=== PATIENT | female | born 1930 | race Caucasian/White ===

== ENCOUNTER 2019-08-09 09:09 | Observation (INO) | payer MEDICARE, OTHER ==
--- NOTE | 2019-08-09 09:31 | EDM.PDOC ---
ED HPI GENERAL MEDICAL PROBLEM - General Chief Complaint: General Stated Complaint: generalized weakness Time Seen by Provider: 08/09/19 09:22 Source of Information: Reports: Patient, EMS History Limitations: Reports: No Limitations - History of Present Illness INITIAL COMMENTS - FREE TEXT/NARRATIVE: Pt. presents to ER with complaints of weakness, lightheadedness, and complaints of nearly passing out. Pt. lives at home with her and is his 100% caregiver. Pt. states that she developed severe lightheadedness and felt as though she was going to pass out when she stood up this AM. EMS was summoned. She denies any chest pain or shortness of breath. No palpitations. Denies any fever or chills, but she states that she has been experiencing myalgias in her arms and legs over the past week as well. She states that she has been taking large doses of ibuprofen for the discomfort. Pt. states that she had 2 dark, tarry stools in the past 2 days. Previously she was constipated and has been taking miralax. She also complains of abdominal pain. It is diffuse in nature but localizes to the R side. She denies any rashes. No recent ill contacts. No sore throat, rhinorrhea, or congestion. No nausea/vomiting. Pt. was hypotensive on scene (89/40) and was given a small fluid bolus. BP improved to 128/78 with fluid and recumbent positioning. Onset: Today Location: Reports: Abdomen, Generalized Quality: Reports: Ache Severity: Moderate Associated Symptoms: Reports: Malaise, Weakness. Denies: Diaphoresis, Fever/ Chills, Headaches, Nausea/Vomiting, Rash, Shortness of Breath Treatments ENVIRONMENTAL SAFETY SPECIALIST: Reports: IV/IO abd/generalized Pain Score (Numeric/FACES): 5 - Related Data Allergies Allergy/AdvReac Type Severity Reaction Status Date / Time acetaminophen Allergy Rash Verified 08/09/19 09:44 [From Tylenol-Codeine] atorvastatin calcium Allergy Other Verified 08/09/19 09:44 [From Lipitor] codeine Allergy Cannot Verified 08/09/19 09:44 Remember codeine phosphate Allergy Rash Verified 08/09/19 09:44 [From Tylenol-Codeine] ezetimibe [From Zetia] Allergy Nausea and Verified 08/09/19 09:44 Vomiting fluvastatin sodium Allergy Other Verified 08/09/19 09:44 [From Lescol] simvastatin [From Zocor] Allergy Other Verified 08/09/19 09:44 strawberry Allergy Rash Verified 08/09/19 09:44 Sulfa (Sulfonamide Allergy Hives Verified 08/09/19 09:44 Antibiotics) tetanus toxoid, adsorbed Allergy Other Verified 08/09/19 09:44 PED DANDER Allergy Bronchospas Uncoded 08/09/19 09:44 ms Home Meds: Home Meds Aspirin [Halfprin] 81 mg PO DAILY 07/04/15 [History] Benazepril [Lotensin] 1 tab PO DAILY 07/04/15 [History] Levothyroxine [Synthroid] 100 mcg PO DAILY 07/04/15 [History] Metoprolol Succinate [Toprol XL] 50 mg PO DAILY 07/04/15 [History] Cholecalciferol (Vitamin D3) [Vitamin D3] 2,000 unit PO DAILY 08/09/19 [History] Ibuprofen 200 mg PO Q4H PRN 08/09/19 [History] Psyllium Husk [Metamucil] 1 tsp PO DAILY PRN 08/09/19 [History] Past Medical History Other Gastrointestinal History: RECTAL BLEEDING, HX COLON POLYPS Other Endocrine/Metabolic History: HYPERPARATHYROIDISM Other Hematologic History: HYPERCALCEMIA - Past Surgical History Other GI Surgeries/Procedures: HEMORRHOIDECTOMY Other Musculoskeletal Surgeries/Procedures:: TENDON REPAIR ED ROS GENERAL - Review of Systems Review Of Systems: See Below Constitutional: Reports: Malaise, Weakness, Fatigue. Denies: Night Sweats, Diaphoresis HEENT: Reports: No Symptoms Respiratory: Reports: No Symptoms Cardiovascular: Reports: No Symptoms Endocrine: Reports: No Symptoms GI/Abdominal: Reports: Abdominal Pain, Black Stool, Melena. Denies: Nausea, Vomiting : Reports: No Symptoms Musculoskeletal: Reports: Muscle Pain Skin: Reports: No Symptoms Neurological: Reports: Weakness Psychiatric: Reports: No Symptoms Hematologic/Lymphatic: Reports: No Symptoms Immunologic: Reports: No Symptoms ED EXAM, GENERAL - Physical Exam Exam: See Below Exam Limited By: No Limitations General Appearance: Alert, WD/WN, Mild Distress Eye Exam: Bilateral Eye: EOMI, Normal Fundi, Normal Inspection, PERRL Throat/Mouth: Normal Inspection, Normal Lips, Normal Teeth, Normal Gums, Normal Oropharynx, Normal Voice, No Airway Compromise Head: Atraumatic, Normocephalic Neck: Normal Inspection, Supple, Non-Tender, Full Range of Motion Respiratory/Chest: No Respiratory Distress, Lungs Clear, Normal Breath Sounds, No Accessory Muscle Use, Chest Non-Tender Cardiovascular: Normal Peripheral Pulses, Regular Rate, Rhythm, No Edema, No Gallop, No JVD, No Murmur, No Rub Peripheral Pulses: 4+: Radial (R) GI/Abdominal: Soft, No Organomegaly, No Distention, No Mass, Pelvis Stable, Tender (Female) Exam: Deferred Rectal (Female) Exam: Normal Rectal Tone Back Exam: Normal Inspection, Full Range of Motion Extremities: Normal Inspection, Normal Range of Motion, Non-Tender, No Pedal Edema, Normal Capillary Refill Neurological: Alert, Oriented, CN II-XII Intact, Normal Cognition, Normal Gait, Normal Reflexes, No Motor/Sensory Deficits Psychiatric: Normal Affect, Normal Mood Skin Exam: Warm, Dry, Intact, No Rash, Pallor Lymphatic: No Adenopathy EKG INTERPRETATION Rhythm: NSR Vale: Normal P-Wave: Present QRS: Normal ST-T: Normal QT: Normal Course - Vital Signs Last Recorded V/S: Last Vital Signs Temp 37.0 C 08/09/19 09:22 Pulse 71 08/09/19 09:22 Resp 16 08/09/19 09:22 BP 153/60 H 08/09/19 09:22 Pulse Ox 96 08/09/19 09:22 - Orders/Labs/Meds Orders: Active Orders 24 hr Category Date Time Status EKG Documentation Completion [RC] STAT Care 08/09/19 09:24 Active CULTURE BLOOD [BC] Stat Lab 08/09/19 09:48 Received CULTURE BLOOD [BC] Stat Lab 08/09/19 09:53 Received FECAL OCCULT BLOOD,POC DIAG [POC] Stat Lab 08/09/19 09:38 Ordered UA W/MICROSCOPIC [URIN] Stat Lab 08/09/19 09:22 Ordered Sodium Chloride 0.9% [Saline Flush] Med 08/09/19 09:21 Active 10 ml FLUSH ASDIRECTED PRN Blood Culture x2 Reflex Set [OM.PC] Stat Oth 08/09/19 09:22 Ordered Peripheral IV Insertion Adult [OM.PC] Routine Oth 08/09/19 09:21 Ordered Medication Orders Sodium Chloride (Saline Flush) 10 ml FLUSH ASDIRECTED PRN PRN Reason: Keep Vein Open Labs: Laboratory Tests 08/09/19 08/09/19 08/09/19 Range/Units 09:53 09:53 09:53 WBC 13.5 H (4.0-10.0) x10^3/uL RBC 3.88 L (4.00-5.50) x10^6/uL Hgb 11.6 L (12.0-16.0) g/dL Hct 35.7 (33.0-47.0) % MCV 92.0 (78.0-93.0) fL MCH 29.9 (26.0-32.0) pg MCHC 32.5 (32.0-36.0) g/dL RDW Coeff of Johan 12.2 (10.0-15.0) % Plt Count 335 (130-400) x10^3/uL Neut % (Auto) 86.7 H (50.0-80.0) % Lymph % (Auto) 6.6 L (25.0-50.0) % [place] % (Auto) 5.5 (2.0-11.0) % Eos % (Auto) 1.0 (0.0-4.0) % Baso % (Auto) 0.2 (0.2-1.2) % PT (10.0-12.8) SEC INR (2.0-3.5) Sodium 144 (69-191) mmol/L Potassium 4.3 (1.5-9.9) mmol/L Chloride 107 (54-184) mmol/L Carbon Dioxide 27 (21-32) mmol/L Anion Gap 14.3 (10-20) mmol/L BUN 11 (7-18) mg/dL Creatinine 1.0 (0.55-1.02) mg/dL Est Cr Clr Drug Dosing 28.78 mL/min Estimated GFR (MDRD) 52 Glucose 137 H (74-106) mg/dL Lactic Acid 1.4 (0.4-2.0) mmol/L Calcium 10.2 H (8.5-10.1) mg/dL Corrected Calcium 11.00 H (8.5-10.1) mg/dL Phosphorus 2.7 (2.6-4.7) mg/dL Magnesium 2.0 (1.8-2.4) mg/dL Total Bilirubin 0.6 (0.2-1.0) mg/dL AST 14 L (15-37) U/L ALT 13 L (14-59) U/L Alkaline Phosphatase 75 (46-116) U/L C-Reactive Protein 5.1 H (<=0.9) mg/dL Total Protein 6.8 (6.4-8.2) g/dL Albumin 3.0 L (3.4-5.0) g/dL Globulin 3.8 Albumin/Globulin Ratio 0.79 TSH, Ultra Sensitive 0.570 (0.358-3.74) uIU/mL 08/09/19 Range/Units 09:53 WBC (4.0-10.0) x10^3/uL RBC (4.00-5.50) x10^6/uL Hgb (12.0-16.0) g/dL Hct (33.0-47.0) % MCV (78.0-93.0) fL MCH (26.0-32.0) pg MCHC (32.0-36.0) g/dL RDW Coeff of Johan (10.0-15.0) % Plt Count (130-400) x10^3/uL Neut % (Auto) (50.0-80.0) % Lymph % (Auto) (25.0-50.0) % [place] % (Auto) (2.0-11.0) % Eos % (Auto) (0.0-4.0) % Baso % (Auto) (0.2-1.2) % PT 9.8 L (10.0-12.8) SEC INR 0.9 L (2.0-3.5) Sodium (69-191) mmol/L Potassium (1.5-9.9) mmol/L Chloride (54-184) mmol/L Carbon Dioxide (21-32) mmol/L Anion Gap (10-20) mmol/L BUN (7-18) mg/dL Creatinine (0.55-1.02) mg/dL Est Cr Clr Drug Dosing mL/min Estimated GFR (MDRD) Glucose (74-106) mg/dL Lactic Acid (0.4-2.0) mmol/L Calcium (8.5-10.1) mg/dL Corrected Calcium (8.5-10.1) mg/dL Phosphorus (2.6-4.7) mg/dL Magnesium (1.8-2.4) mg/dL Total Bilirubin (0.2-1.0) mg/dL AST (15-37) U/L ALT (14-59) U/L Alkaline Phosphatase (46-116) U/L C-Reactive Protein (<=0.9) mg/dL Total Protein (6.4-8.2) g/dL Albumin (3.4-5.0) g/dL Globulin Albumin/Globulin Ratio TSH, Ultra Sensitive (0.358-3.74) uIU/mL Meds: Medications Generic Name Dose Route Start Last Admin Trade Name Freq PRN Reason Stop Dose Admin Sodium Chloride 10 ml 08/09/19 09:21 Saline Flush FLUSH ASDIRECTED PRN Keep Vein Open Discontinued Medications Generic Name Dose Route Start Last Admin Trade Name Freq PRN Reason Stop Dose Admin Iopamidol 100 ml 08/09/19 10:46 08/09/19 11:09 Isovue-300 (61%) IVPUSH 08/09/19 10:47 100 ml ONETIME ONE Administration Pantoprazole Sodium 40 mg 08/09/19 11:00 08/09/19 11:17 Protonix Iv IVPUSH 08/09/19 11:01 40 mg ONETIME ONE Administration - Radiology Interpretation Free Text/Narrative:: chest x-ray is negative for acute pathology CT abd/pelvis negative for acute pathology - Re-Assessments/Exams Free Text/Narrative Re-Assessment/Exam: Fecal occult blood was negative. Pt. smells strongly of melena. Departure - Departure Time of Disposition: 12:03 Disposition: Refer to Observation Clinical Impression: Gastritis due to nonsteroidal anti-inflammatory drug (NSAID) - Discharge Information - Problem List Review Problem List Initiated/Reviewed/Updated: Yes - My Orders Last 24 Hours: My Active Orders 08/09/19 09:21 Sodium Chloride 0.9% [Saline Flush] 10 ml FLUSH ASDIRECTED PRN Peripheral IV Insertion Adult [OM.PC] Routine 08/09/19 09:22 UA W/MICROSCOPIC [URIN] Stat Blood Culture x2 Reflex Set [OM.PC] Stat 08/09/19 09:24 EKG Documentation Completion [RC] STAT 08/09/19 09:38 FECAL OCCULT BLOOD,POC DIAG [POC] Stat 08/09/19 09:48 CULTURE BLOOD [BC] Stat 08/09/19 09:53 CULTURE BLOOD [BC] Stat - Assessment/Plan Admission H&P: Please use this note as an admission H&P Last 24 Hours: My Active Orders 08/09/19 09:21 Sodium Chloride 0.9% [Saline Flush] 10 ml FLUSH ASDIRECTED PRN Peripheral IV Insertion Adult [OM.PC] Routine 08/09/19 09:22 UA W/MICROSCOPIC [URIN] Stat Blood Culture x2 Reflex Set [OM.PC] Stat 08/09/19 09:24 EKG Documentation Completion [RC] STAT 08/09/19 09:38 FECAL OCCULT BLOOD,POC DIAG [POC] Stat 08/09/19 09:48 CULTURE BLOOD [BC] Stat 08/09/19 09:53 CULTURE BLOOD [BC] Stat Plan: Spoke with Dr. Siddiqi. Pt. will be admitted observation at this point. Pt. was started on IV protonix. Pt. FOBT was negative, but her stool smell is consistent with digested blood. Her stool in ER was normal colored and non- melenic. Will continue IV protonix BID. H and H will be trended. Will start maintenance IV fluids. Dr. Siddiqi will assume care in the AM.
--- NOTE | 2019-08-09 10:28 | CR ---
[id number] RAD/RAD Chest PA or AP 1V EXAM: FRONTAL CHEST INDICATION: Weakness and fatigue. COMPARISON: None. DISCUSSION: A 6 mm right perihilar granuloma. Hyperinflation compatible with chronic obstructive pulmonary disease. Borderline heart size without evidence of congestive heart failure. IMPRESSION: 1. No acute findings. Raul Echavarria MD 08/09/19 1027 Thank you for allowing us to participate in the care of your patient.
[2019-08-09 10:38] LABS: ANION GAP 14.3 mmol/L (10-20)
[2019-08-09] MEDS ORDERED: Iopamidol 612 MG/ML 100 ML Bottle IVPUSH ONE (10:46)
[2019-08-09] MEDS ORDERED: Pantoprazole 40 MG Vial IVPUSH ONE (11:00)
--- NOTE | 2019-08-09 11:36 | CT ---
[id number] CT/CT Abdomen Pelvis W IV EXAM: CT Abdomen Pelvis W IV CLINICAL DATA: RT SIDED ABD PAIN, ELEVATED WBC'S COMPARISON STUDY: None. FINDINGS: Gallbladder has been resected. Postcholecystectomy dilation of the common bile duct. Liver, spleen, pancreas, adrenal glands are unremarkable. Renal sinus and cortical cysts in both kidneys. Largest is on the right measuring 5 cm. Colonic diverticulosis. Moderate colonic stool burden. No evidence of acute diverticulitis or colitis. No small bowel obstruction or inflammation. No lymphadenopathy in the abdomen or pelvis. Urinary bladder is unremarkable. Uterus has been resected. Adnexal regions are unremarkable. Scattered changes of spondylosis throughout the spine. No fracture or osseous lesion. IMPRESSION: No acute findings in the abdomen or pelvis. Multiple chronic findings are described in detail above. Sunil Yarbrough MD 08/09/19 [id number] Thank you for allowing us to participate in the care of your patient.
[2019-08-09] MEDS ORDERED: Sodium Chloride 0.9% 1,000 ML IV ONE (12:12)
[2019-08-09] MEDS: Sodium Chloride 0.9% 10 ML Syringe FLUSH PRN ×2 (19:53→21:35)
[2019-08-09] MEDS ORDERED: cefTRIAXone 1 GM Vial IVPUSH SCH (20:00)
[2019-08-09] MEDS ORDERED: Pantoprazole 40 MG Vial IVPUSH SCH (22:30)
[2019-08-10] MEDS ORDERED: Levothyroxine 100 MCG Tab PO SCH (07:00)
[2019-08-10 07:34] LABS: ANION GAP 13.7 mmol/L (10-20)
[2019-08-10] MEDS ORDERED: Cholecalciferol (Vitamin D3) 25 MCG Tab PO SCH (08:00)
[2019-08-10] MEDS ORDERED: Pantoprazole 40 MG Vial IVPUSH SCH (08:00)
[2019-08-10] MEDS ORDERED: Metoprolol Succinate 50 MG Tab.ER PO SCH (08:00)
[2019-08-10] MEDS ORDERED: BENZAPRIL PO SCH (08:00)
[2019-08-10] MEDS ORDERED: Omeprazole 20 MG Cap.CR PO SCH (09:23)
[2019-08-10] MEDS ORDERED: predniSONE 20 MG Tab PO SCH (09:23)
[2019-08-10 10:40] VITALS: BP 138/78; PULSE 66
[2019-08-10] MEDS ORDERED: cefTRIAXone 1 GM Vial IVPUSH SCH (12:00)
--- NOTE | 2019-08-10 17:16 | DISCH ---
PRIMARY DISCHARGE DIAGNOSES: 1. Acute blood loss anemia due to concern for gastrointestinal bleeding, probable gastritis, but Hemoccult was negative. 2. Hypercalcemia, chronic, probably primary hyperparathyroidism. Calcium level stable. 3. Polymyalgia rheumatica, recently started today on prednisone, seems to help. 4. Esophageal reflux. PPI started due to concern of gastritis and gastrointestinal bleeding. 5. Hypothyroidism. 6. Osteopenia. 7. Impaired fasting glucose, but no diabetes. 8. Vitamin D deficiency. Vitamin D level runs around 30. 9. Moderate malnutrition. Albumin 2.5 likely due to some dental extractions and poor oral intake. REASON FOR ADMISSION: On the date of admission, this 89-year-old came into the emergency room. She was having generalized weakness, lightheadedness, nearly passing out. She had 2 days of dark stools. Her hemoglobin was found to be 11.6, it was recently 13. She had a mildly elevated white count. She was not hypotensive or having any tachycardia, but it was felt she needed admission. She was given IV Protonix. Serial hemoglobins were monitored, it did drop to 9.9, but came back up to 10.4 this morning. She was given some IV fluids. Her creatinine was normal at 1 on admission. Her calcium was 11, which is around her baseline and is 10 on discharge. Inflammation marker was drawn and it was elevated up to 56 that had recently been in the 30s in the clinic. She had been in with her to his appointment and it was noted that she had been losing weight. She was worried about having rheumatoid arthritis, but all of that lab workup was negative other than her CRP level being 24.8. The patient was started on prednisone, she got 40 mg dose here. She also received some IV Rocephin due to concern for UTI; however, she had no urinary symptoms and only 5 - 10 wbc's and 10-20 rbc's. Culture was sent and is pending. Blood culture showed no growth. She was able to get up, work with therapies, and was felt to be stable for discharge. Discussion was had between the social media campaign manager and her son. They were hopeful to get some home health on board for the patient and her who does have some dementia so she is his caregiver. OVERALL DISCHARGE PLANS AND INSTRUCTIONS: The patient will go home on prednisone 15 mg daily for polymyalgia and Prilosec 20 mg twice daily for presumed gastritis. She will follow up in the clinic as previously scheduled on 09/01/2019 with a BMP, CBC, and ESR at that time. Votv-ca-desq occurred on this date 08/10/19. Primary need for home health is teaching and assistance and medications due to new diagnosis of polymyalgia and new medications. She also has some impaired mobility due to her shoulder and hip pain. Does require assist of another person to leave her home and would benefit from some physical therapy. I will periodically review this plan of care. PHYSICAL EXAMINATION: Vital Signs: Discharging vitals include a weight 51.4 kg, temperature 99.4, pulse 70, blood pressure 141/93, respiratory rate 16, O2 of 100 on room air. General: She is in no acute distress. Heart: Regular rate and rhythm with murmur noted. Lungs: Sounds are clear to auscultation bilaterally without crackles or wheezes. Abdomen: Nondistended, nontender. Extremities: Warm and dry. No edema. Mental Status: She is alert. She is orientated x3. She is answering questions appropriately. MKA: 08/10/2019 15:21:21 MODL: 08/10/2019 17:10:51 /[id number] MTDD
[2019-08-11] MEDS ORDERED: Cholecalciferol (Vitamin D3) 25 MCG Tab PO SCH (08:00)
== END 2019-08-10 13:40 | disposition home or self-care (01) ==
LOC: VM.ED 09:09 → VM.MS 11:44
PROVIDERS: ADMIT Physician Assistant; ATTEND Physician Assistant
DX: D62 Acute posthemorrhagic anemia (principal); E83.52 Hypercalcemia; M35.3 Polymyalgia rheumatica; K21.9 Gastro-esophageal reflux disease without esophagitis; E03.9 Hypothyroidism, unspecified; M85.80 Other specified disorders of bone density and structure, unspecified site; E46 Unspecified protein-calorie malnutrition; Z88.6 Allergy status to analgesic agent; Z88.8 Allergy status to other drugs, medicaments and biological substances; Z88.5 Allergy status to narcotic agent; Z91.018 Allergy to other foods; Z88.2 Allergy status to sulfonamides; Z88.7 Allergy status to serum and vaccine; Z91.048 Other nonmedicinal substance allergy status; Z79.82 Long term (current) use of aspirin; Z79.899 Other long term (current) drug therapy
CPT/HCPCS: 36415; 71045; 74177; 80053; 81001; 82274; 83605; 83735; 84100; 84443; 85014; 85018; 85025; 85610; 85652; 86140; 87040; 87086; 93005; 93010; 96361; 96374; 96375; 96376; 99220; 99285-25; A9270-GY; C9113; G0378; J0696; J7030; Q9967

== ENCOUNTER 2019-11-06 01:05 | Emergency (ER) | payer MEDICARE, OTHER ==
--- NOTE | 2019-11-06 01:48 | EDM.PDOC ---
ED HPI GENERAL MEDICAL PROBLEM - General Chief Complaint: General Stated Complaint: Rectal Bleeding, Hemorroids Time Seen by Provider: 11/06/19 01:10 Source of Information: Reports: Patient - History of Present Illness INITIAL COMMENTS - FREE TEXT/NARRATIVE: Patient comes in the emergency department with concerns of a bleeding hemorrhoid. Patient is a long-standing history of hemorrhoids. She was actually supposed to call a surgeon approximate 2 weeks ago to have it surgically removed. She states that the bleeding did stop. she followed up with primary care provider whom told her that she could hold off on the surgery if it did not cause any more discomfort or bleeding. Patient comes in tonight stating that it started bleeding. She noticed when she was using the bathroom. She states that it looked as if it was a lot of blood. She was unable to stop the bleeding on its own. She placed towels in her rectum area and transfer herself to the emergency department. Upon arrival to the emergency part the bleeding has discontinued. Patient denies anything dizziness, shortness of breath, chest pain, GI upset, incontinence, blurred vision, or peripheral edema. His any other concerns or complaints. She denies trying any topical creams to stop the bleeding prior to arrival. Onset: Sudden Quality: Reports: Other Severity: Mild Improves with: Reports: None Worsens with: Reports: None Associated Symptoms: Reports: No Other Symptoms - Related Data Allergies Allergy/AdvReac Type Severity Reaction Status Date / Time acetaminophen Allergy Rash Verified 08/09/19 09:44 [From Tylenol-Codeine] atorvastatin calcium Allergy Other Verified 08/09/19 09:44 [From Lipitor] codeine Allergy Cannot Verified 08/09/19 09:44 Remember codeine phosphate Allergy Rash Verified 08/09/19 09:44 [From Tylenol-Codeine] ezetimibe [From Zetia] Allergy Nausea and Verified 08/09/19 09:44 Vomiting fluvastatin sodium Allergy Other Verified 08/09/19 09:44 [From Lescol] simvastatin [From Zocor] Allergy Other Verified 08/09/19 09:44 strawberry Allergy Rash Verified 08/09/19 09:44 Sulfa (Sulfonamide Allergy Hives Verified 08/09/19 09:44 Antibiotics) tetanus toxoid, adsorbed Allergy Other Verified 08/09/19 09:44 PED DANDER Allergy Bronchospas Uncoded 08/09/19 09:44 ms Home Meds: Home Meds Aspirin [Halfprin] 81 mg PO DAILY 07/04/15 [History] Benazepril [Lotensin] 1 tab PO DAILY 07/04/15 [History] Levothyroxine [Synthroid] 100 mcg PO DAILY 07/04/15 [History] Metoprolol Succinate [Toprol XL] 50 mg PO DAILY 07/04/15 [History] Cholecalciferol (Vitamin D3) [Vitamin D3] 2,000 unit PO DAILY 08/09/19 [History] Psyllium Husk [Metamucil] 1 tsp PO DAILY PRN 08/09/19 [History] Omeprazole 20 mg PO BIDAC #60 cap.cr 08/10/19 [Rx] predniSONE [Prednisone] 15 mg PO DAILY #45 tab.ds.pk 08/10/19 [Rx] Past Medical History Cardiovascular History: Reports: High Cholesterol, Hypertension Gastrointestinal History: Reports: Diverticulosis, GERD, Hemorrhoids Other Gastrointestinal History: RECTAL BLEEDING, HX COLON POLYPS Genitourinary History: Reports: Other (See Below) Other Genitourinary History: hematuria Musculoskeletal History: Reports: Other (See Below) Other Musculoskeletal History: trigger finger. de quervain's tenosynovitis. osteopenia. contracture of finger joint Neurological History: Reports: Other (See Below) Other Neuro History: poliomyelitis Endocrine/Metabolic History: Reports: Hyperparathyroidism, Hypothyroidism Other Endocrine/Metabolic History: HYPERPARATHYROIDISM Other Hematologic History: HYPERCALCEMIA Oncologic (Cancer) History: Reports: Other (See Below) Other Oncologic History: adenomatous colonic polyps - Past Surgical History Other GI Surgeries/Procedures: HEMORRHOIDECTOMY Female Surgical History: Reports: Hysterectomy Other Musculoskeletal Surgeries/Procedures:: TENDON REPAIR ED ROS GENERAL - Review of Systems Review Of Systems: See Below Constitutional: Reports: No Symptoms HEENT: Reports: No Symptoms Respiratory: Reports: No Symptoms Cardiovascular: Reports: No Symptoms Endocrine: Reports: No Symptoms GI/Abdominal: Reports: No Symptoms : Reports: No Symptoms Musculoskeletal: Reports: No Symptoms Skin: Reports: No Symptoms Neurological: Reports: No Symptoms ED EXAM, GENERAL - Physical Exam Exam: See Below Exam Limited By: No Limitations General Appearance: Alert, WD/WN, No Apparent Distress Respiratory/Chest: No Respiratory Distress, Lungs Clear, Normal Breath Sounds Cardiovascular: Normal Peripheral Pulses, Regular Rate, Rhythm, No Edema Rectal (Female) Exam: Hemorrhoids (external hemorrhoid noted-dried blood present. mild amount noted on tissue/gauze covering area) Extremities: Normal Inspection, Normal Range of Motion, Non-Tender Neurological: Alert, Oriented Skin Exam: Warm, Dry, Intact, Normal Color Course - Orders/Labs/Meds Orders: Active Orders 24 hr Category Date Time Status Nitroglycerin [Nitro-Bid 2%] Med 11/06/19 01:42 Once 1 gm TOP ONETIME ONE Departure - Departure Time of Disposition: 01:53 Disposition: Home, Self-Care 01 Condition: Good Clinical Impression: Bleeding hemorrhoid - Discharge Information *PRESCRIPTION DRUG MONITORING PROGRAM REVIEWED*: Not Applicable *COPY OF PRESCRIPTION DRUG MONITORING REPORT IN PATIENT EDDIE: Not Applicable Instructions: Disposable Sitz Bath, Nonsurgical Procedures for Hemorrhoids, Care After Additional Instructions: 1. rest 2. Information regarding hemorrhoids and sitz bath provided in the discharge packet 3. Follow up with her primary care provider or surgeon regarding long-term management and care of the hemorrhoids 4. Activity and diet as tolerated 5. Call with any questions or concerns - My Orders Last 24 Hours: My Active Orders 11/06/19 01:42 Nitroglycerin [Nitro-Bid 2%] 1 gm TOP ONETIME ONE - Assessment/Plan Last 24 Hours: My Active Orders 11/06/19 01:42 Nitroglycerin [Nitro-Bid 2%] 1 gm TOP ONETIME ONE Assessment:: 1. Hemorrhoid Plan: 1. Nitroglycerin topical cream placed over the hemorrhoid help control any further bleeding 2. Patient provided to the patient regarding activity, diet, follow-up care 3. All questions and concerns addressed patient prior to discharge
[2019-11-06] MEDS: Nitroglycerin 2% Oint 1 GM UD Packet TOP ONE (01:50)
[2019-11-06 04:54] VITALS: BP 172/76; PULSE 68
== END 2019-11-06 02:02 | disposition home or self-care (01) ==
LOC: VM.ED 01:05
DX: K64.4 Residual hemorrhoidal skin tags (principal); I10 Essential (primary) hypertension; E78.00 Pure hypercholesterolemia, unspecified; E03.9 Hypothyroidism, unspecified; E21.3 Hyperparathyroidism, unspecified; Z91.018 Allergy to other foods; Z88.5 Allergy status to narcotic agent; Z88.8 Allergy status to other drugs, medicaments and biological substances; Z88.2 Allergy status to sulfonamides
CPT/HCPCS: 99282; 99283-GF; A9270-GY